=== PATIENT | female | born 1980 | race Caucasian/White ===

== ENCOUNTER → 2023-02-08 | Outpatient (CLI) | payer OTHER ==
[~2023-02-08] MED LIST: CHLO PO; CLARITIN D TAB1 TAB PO; CLARITON D; METHYLDOPA PO; MOTRIN 600600 MG/TAB PO; PERCOCET 325 MG1 TA2 PO; PRENATAL1 TA1 PO; PROVENTIL0.09 MG/A1 IH; QVAR0.04 MG/AC IH; SENOKOT S 50 MG1 TAB PO; SINGULAIR 110 MG/TAB PO; TAMIFLU 75MG75 MG PO; TYLENOL 325MG325 MG PO
== END ==
LOC: MC.RAD 14:32
DX: Z12.31 Encounter for screening mammogram for malignant neoplasm of breast (principal)